=== PATIENT | female | born 1975 | race Caucasian/White ===

== ENCOUNTER 2016-03-19 10:43 | Outpatient (CLI) | payer OTHER ==
[~2016-03-19] VITALS: Ht 170.2 cm; Wt 107.7 kg
[2016-03-19] MEDS ORDERED: LISI1TAB6 PO (11:02)
[2016-03-19] MEDS ORDERED: SERT100T PO (11:02)
[2016-03-19] MEDS ORDERED: CALC600T12 PO (11:02)
[2016-03-19] MEDS ORDERED: OMEG-160 PO (11:02)
[2016-03-19] MEDS ORDERED: METO100T6 PO (11:02)
[2016-03-19] MEDS ORDERED: GLIM1TAB PO (11:02)
[2016-03-19] MEDS ORDERED: EXEN2VIA SQ (11:02)
[2016-03-19] MEDS ORDERED: METF1000 PO (11:02)
[2016-03-19] MEDS ORDERED: FERR-74 PO (11:02)
[2016-03-19] MEDS ORDERED: CHOL10003 PO (11:02)
[2016-03-19] MEDS ORDERED: CETI10TA20 PO (11:02)
[2016-03-19] MEDS ORDERED: SIMV20TA3 PO (11:02)
[2016-03-19 11:05] VITALS: BP 137/85
[2016-03-19 11:42] LABS: BASOPHILS % (AUTO) 1 % (0-10); EOSINOPHILS # (AUTO) 0.2 10^3/uL (0.0-0.3); EOSINOPHILS % (AUTO) 4 % (0-10); LYMPHOCYTES # (AUTO) 1.4 X 10^3 (1.0-4.0); LYMPHOCYTES % (AUTO) 23 % (12-44); MEAN CORPUSCULAR HEMOGLOBIN 28 PG (25-34); MEAN CORPUSCULAR HGB CONC 33 G/DL (32-36); MEAN CORPUSCULAR VOLUME 85 FL (80-99); MEAN PLATELET VOLUME 10.2 FL (7.4-10.4); MONOCYTES # (AUTO) 0.5 X 10^3 (0.0-1.0); MONOCYTES % (AUTO) 9 % (0-12); NEUTROPHILS # (AUTO) 3.8 X 10^3 (1.8-7.8); NEUTROPHILS % (AUTO) 64 % (42-75); PLATELET COUNT 258 10^3/uL (130-400); RED BLOOD COUNT 4.48 10^6/uL (4.35-5.85); RED CELL DISTRIBUTION WIDTH 13.8 % (10.0-14.5); WHITE BLOOD COUNT 5.9 10^3/uL (4.3-11.0)
[2016-03-24] MEDS ORDERED: OXYC-465 PO (08:33)
[2016-03-24] MEDS ORDERED: DOCU100C37 PO (08:33)
[2016-03-24] MEDS ORDERED: IBUP-1780 PO (08:33)
== END 2016-03-19 11:40 | disposition home or self-care (01) ==
LOC: PREOP 10:43
PROVIDERS: ATTEND Obstetrics & Gynecology
DX: Z01.812 Encounter for preprocedural laboratory examination (principal); Z11.2 Encounter for screening for other bacterial diseases; N93.8 Other specified abnormal uterine and vaginal bleeding; N92.1 Excessive and frequent menstruation with irregular cycle; R19.09 Other intra-abdominal and pelvic swelling, mass and lump; N39.3 Stress incontinence (female) (male); D64.9 Anemia, unspecified
CPT/HCPCS: 36415; 85025; 86850; 86900; 86901; 87081

== ENCOUNTER 2016-03-23 10:55 | Day surgery (SDC) | payer OTHER ==
[~2016-03-23] VITALS: Ht 170.2 cm; Wt 107.7 kg
[~2016-03-23 10:55] MED LIST: CALC600T12 PO; CETI10TA20 PO; CHOL10003 PO; EXEN2VIA SQ; FERR-74 PO; GLIM1TAB PO; LISI1TAB6 PO; METF1000 PO; METO100T6 PO; OMEG-160 PO; SERT100T PO; SIMV20TA3 PO
[2016-03-23] MEDS ORDERED: ceFAZolin 1,000 MG (ANCEF) VIAL ONE (11:06)
[2016-03-23] MEDS ORDERED: NORMAL SALINE (BAXTER MINI) 50 ML IV ONE (11:07)
[2016-03-23] MEDS ORDERED: CATHETER FLUSH 10 ML SYR IV PRN (11:15)
[2016-03-23] MEDS ORDERED: ceFAZolin 1 GM/NS 50 ML IVPB IV ONE ×2 (11:15)
[2016-03-23 11:25] VITALS: BP 136/87
[2016-03-23] MEDS ORDERED: PHENYLEPHRINE 0.25% NASAL SPR (NEO-SYNEPHRINE) 15 ML NS ONE (11:45)
[2016-03-23] MEDS ORDERED: FAMOTIDINE 20MG/2ML IV (PEPCID) IV ONE (11:45)
[2016-03-23] MEDS: LACTATED RINGERS 1,000 ML IV PRN ×2 (11:48→13:36)
[2016-03-23] MEDS ORDERED: BUP/EPI 0.25% 1:200,000 (MARCAINE) 30 ML VIAL ONE (11:53)
[2016-03-23] MEDS ORDERED: ONDANSETRON 4 MG/2 ML (SDV) Z0FRAN ONE (12:01)
[2016-03-23] MEDS ORDERED: LACTATED RINGERS 1,000 ML IV ONE ×2 (12:01→13:17)
[2016-03-23] MEDS ORDERED: proPOfol 200 MG/20 ML (DIPRIVAN) VIAL IV ONE (12:01)
[2016-03-23] MEDS ORDERED: LIDOCAINE PF 2% 10 ML (XYLOCAINE) AMP ONE (12:01)
[2016-03-23] MEDS ORDERED: SEVOFLURANE (ULTANE) 15 ML INHAL SOLN ONE ×3 (12:01→15:01)
[2016-03-23] MEDS ORDERED: ROCURONIUM 50 MG/5 ML (ZEMURON) VIAL IV ONE ×2 (12:02→12:49)
[2016-03-23] MEDS ORDERED: fentaNYL INJECTION 250 MCG/5 ML AMP ONE (12:02)
[2016-03-23] MEDS ORDERED: MIDAZOLAM 2 MG/2 ML (VERSED) VIAL ONE (12:02)
--- NOTE | 2016-03-23 12:32 | Progress Note-Pre Operative ---
Pre-Operative Progress Note H&P Reviewed The H&P was reviewed, patient examined and no changes noted. Date H&P Reviewed: Mar 23, 2016 Time H&P Reviewed: 12:31 Pre-Operative Diagnosis: DUB/menorrhagia/intrauterine mass VILMA RINCON MD Mar 23, 2016 12:32 pm
[2016-03-23] MEDS ORDERED: ESTROGENS CONJ IV 25 MG/5 ML (PREMARIN) VIAL IVP ONE (12:45)
[2016-03-23] MEDS ORDERED: MEPERIDINE (DEMEROL) INJ 100 MG/ML IM PRN (12:45)
[2016-03-23] MEDS ORDERED: ONDANSETRON 4 MG/2 ML (SDV) Z0FRAN IVP PRN ×2 (12:45→14:45)
[2016-03-23] MEDS ORDERED: PATIENT MAY USE OWN MEDS, ALL MC SCH (12:45)
[2016-03-23] MEDS ORDERED: oxyCODONE/APAP 10/325MG (PERCOCET 10) TABLET PO PRN (12:45)
[2016-03-23] MEDS ORDERED: PROMETHAZINE INJ 25 MG/ML (PHENERGAN) AMP IM PRN (12:45)
[2016-03-23] MEDS ORDERED: GLYCOPYRROLATE 0.2 MG/ML (ROBINUL) 2 ML VIAL ONE (13:17)
[2016-03-23] MEDS ORDERED: NEOSTIGMINE (BLOXIVERZ ) 1 MG/1ML 10 ML VIAL ONE (13:17)
[2016-03-23] MEDS ORDERED: MEPERIDINE (DEMEROL) INJ 50 MG/ML IVP PRN (14:45)
[2016-03-23] MEDS ORDERED: HYDROmorphone (DILAUDID) 2 MG/ML VIAL IVP PRN (14:45)
[2016-03-23] MEDS ORDERED: morphine INJ 10 MG/ML 1ML (SYR OR VIAL) IVP PRN (14:45)
[2016-03-23] MEDS ORDERED: ESTROGENS CONJ IV 25 MG/5 ML (PREMARIN) VIAL ONE (15:07)
[2016-03-23] MEDS ORDERED: WATER (STERILE) FOR INJECTION 10 ML ONE (15:07)
[2016-03-23] MEDS ORDERED: PROMETHAZINE INJ 25 MG/ML (PHENERGAN) AMP IV PRN (15:15)
[2016-03-23] MEDS ORDERED: ONDANSETRON 4 MG/2 ML (SDV) Z0FRAN IV PRN (15:15)
[2016-03-23] MEDS: KETOROLAC 30 MG/ML VIAL IVP SCH ×2 (15:20→22:43)
[2016-03-23] MEDS: morphine INJ 10 MG/ML 1ML (SYR OR VIAL) IV PRN ×2 (15:23→15:32)
[2016-03-23 16:00] VITALS: BP 125/68
[2016-03-23] MEDS: D5 LR IV SOLUTION 1,000 ML IV SCH (16:50)
[2016-03-23 17:00] VITALS: BP 133/71
[2016-03-23 22:54] VITALS: BP 110/70
[2016-03-24] MEDS: D5 LR IV SOLUTION 1,000 ML IV SCH (00:03)
[2016-03-24 04:15] VITALS: BP 110/77
[2016-03-24] MEDS: KETOROLAC 30 MG/ML VIAL IVP SCH (04:15)
--- NOTE | 2016-03-24 08:32 | Progress Note-Standard ---
Standard Progress Note Progress Notes/Assess & Plan Progress/Assessment & Plan patient is without complaint. She has ambulating, tolerating by mouth well, has good pain control, denies chest pain, denies shortness of breath, denies nausea vomiting, she has not voided as of yet. Vital Signs Date Time Temp Pulse Resp B/P Pulse Ox O2 Delivery O2 Flow Rate FiO2 03/24/16 04:15 97.8 78 16 110/77 95 Nasal Cannula 2.00 03/23/16 22:54 97.8 78 16 110/70 95 Nasal Cannula 2.00 03/23/16 20:30 98.1 74 18 96 2.00 03/23/16 17:00 99.0 77 18 133/71 96 03/23/16 16:18 2.50 03/23/16 16:00 99.1 71 18 125/68 96 Room Air 03/23/16 11:25 99.7 80 18 136/87 96 Room Air I & O 03/24/16 07:00 Intake Total 2860 ml Output Total 3760 ml Balance -900 ml vital signs are stable. Patient is afebrile. Urine output is normal. Abdomen is benign. Extremities show no clubbing or cyanosis. No Homans sign. Assessment and plan is operative day number 1 doing well. Plan is for discharge home with follow-up in clinic. VILMA RINCON MD Mar 24, 2016 8:32 am
[2016-03-24] MEDS ORDERED: DOCU100C37 PO (08:33)
[2016-03-24] MEDS ORDERED: IBUP-1780 PO (08:33)
[2016-03-24] MEDS ORDERED: OXYC-465 PO (08:33)
--- NOTE | 2016-03-24 08:35 | Discharge Instructions ---
Discharge Instructions Discharge Medications New, Converted or Re-Newed RX: RX on Chart Patient Instructions Patient Instructions: as directed Return to The Hospital For: as directed Activity & Diet Discharge Diet: No Restrictions Activity as Tolerated: No Orders-Post D/C & Referrals Follow Up Appt: return to clinic next Saturday, March 28, 2016 at 930 a.m. for staple removal Call to make follow up appt. for patient in 4 weeks. Activity: Rest for 24 hours, than as tolerated. Wound Care: May remove Band-Aid tomorrow. Replace as desired. Keep incisions clean and dry. Wash daily with soap and water. Please call in RX to patient pharmacy. Diet: As tolerated-Clear Liquids only if nauseated. Tomorrow, may shower or tub bathe as desired. No driving for 24 hours, no alcoholic beverages for 24 hours, and nothing per vagina (no tampons, douching, or intercourse) for 8 weeks. Patient to return to the clinic as soon as possible for: Temperature greater than 101F, Severe Pain, Foul discharge from incision or vagina, Excessive Bleeding (more than a period). VILMA RINCON MD Mar 24, 2016 8:35 am
[2016-03-24 08:45] VITALS: BP 125/65
[2016-03-24] MEDS ORDERED: DOCUSATE SODIUM 100 MG (COLACE) CAP PO SCH (09:00)
[2016-03-24] MEDS ORDERED: IBUPROFEN 800 MG (MOTRIN) TAB PO ONE (09:40)
[2016-03-24 12:25] VITALS: BP 108/70
[2016-03-24] MEDS ORDERED: IBUPROFEN 800 MG (MOTRIN) TAB PO SCH ×2 (12:30→18:00)
--- NOTE | 2016-03-24 22:37 | OPERATIVE REPORT ---
PROCEDURE PHYSICIAN: VILMA RINCON DATE OF PROCEDURE: 03/23/2016 PREOPERATIVE DIAGNOSIS: PREOPERATIVE DIAGNOSES: 1. Dysfunctional uterine bleeding. 2. Menorrhagia. 3. Intrauterine mass. POSTOPERATIVE DIAGNOSES: 1. Dysfunctional uterine bleeding. 2. Menorrhagia. 3. Intrauterine mass. OPERATIVE PROCEDURE: 1. Total laparoscopic hysterectomy. 2. Bilateral salpingectomies. 3. Right ovarian cyst aspiration. 4. Adhesiolysis. 5. Cystoscopy. OPERATIVE DESCRIPTION: With the patient in the supine position, under satisfactory general anesthesia, she was prepped and draped in usual fashion for abdominal and vaginal surgery using the da John robot for assistance. A weighted speculum was placed in the posterior fornix of the vagina. The cervix exposed and grasped anteriorly with single-tooth tenaculum. The uterus sounded to 9 cm of uterine sound. The cervix was then serially dilated with Felix dilators to accommodate a ADILIA 2 manipulator, which is placed using a 6 mm x 8 cm uterine probe and a 30 mm colpotomy ring. Sutures of number 1 Vicryl were placed at 3 and 9 o'clock position of the cervix to affix the cervix to the manipulator. Bean cath was placed in the urinary bladder and the patient brought in low dorsal lithotomy position. A 12 mm incision was made 4 cm superior to the umbilicus. 8 mm incisions were made 9 cm lateral to the umbilicus just above the level of the umbilicus. All 3 incision sites were infiltrated with 0.25% Marcaine with epinephrine prior to incision and port placement. Veress needle was placed through the umbilical incision. Correct placement confirmed with the water drop test. The abdomen was insufflated with 2.4 liters of carbon dioxide and the Veress needle was removed and 12 mm operative port placed. Laparoscope was introduced and an 8 mm ports was placed in right and left lateral incisions. The patient was placed in Trendelenburg allowing the bowel to spill up out of the pelvis. The da John column was advanced onto the patient and docked. Operative instruments were placed in right and left lateral ports. I retired to the da John console. At the console, using a monopolar shear on the right and bipolar fenestrated grasper on the left, the pelvis was first examined. There were adhesions to bowel and omentum to the back side of uterus and to both pelvic brims and particularly the left tube and ovary. These adhesions were taken down with very careful and meticulous dissection. There were adhesions in the cul-de-sac. These were taken free as well avoiding thermal or traumatic injury to bowel or to adjacent structures. The uterus, tubes and ovaries were eventually freed. With those free, attention was then turned to the hysterectomy. The appendix was not visible under the rather copious folds of bowel. An attempt was made to visualize the appendix, that was unsuccessful and was terminated. The vessel sealer was now placed in the right port and then the right fallopian tube was grasped and elevated. It was a fairly significant hydrosalpinx. The mesosalpinx was clamped, cauterized, and divided with the vessel sealer over to the utero-ovarian pedicle, which was clamped, cauterized, and divided in the same manner and then down across the broad ligaments, and down onto the cardinal ligament with the same instrument. The same procedure was performed on the left allowing for removal of both fallopian tubes eventually with the uterus. The anterior lower uterine segment peritoneum was now divided after changing the right instrument out to the monopolar shear. The bladder was carefully dissected down off of the cervix. The colpotomy incision was made at the 12 o'clock position and continued circumferentially until the entire colpotomy ring was exposed. This allowed removal of the uterus with the tubes still attached through the vagina. Several times along the way because of some oozing, a suction scraper loader operator was employed to irrigate and aspirate the blood that was collected in the pelvis. With the uterus removed, the left instrument was replaced with a Cobra grasper, the right with a alejandrina cut needle driver lifter of sanitation truck and then using 2 sutures of V-LOC barbed suture, the vaginal cuff was closed starting first from the right angle and continuing to the midportion of the cuff and then from the left angle to the midportion. Good reapproximation was achieved. Good hemostasis was achieved. The pelvis was now copiously irrigated and examined for hemostasis. The procedure was now addressed to the right ovary which had a large simple appearing cysts that cyst was fenestrated and then the straw to salazar colored fluid was aspirated out. The cyst cavity was irrigated. There was no bleeding from the cyst cavity. The ovary was left to heal on its own. The procedure was now complete. The operative instruments were removed under direct vision as were the ports. The abdomen was evacuated of insufflating gas in the process of removing the port. The skin incisions were closed with anastasiia after first closing the supraumbilical fascial incision with [id number] suture of 2-0 Vicryl. Cystoscopy was performed using saline as a distending medium. The ureteral orifices were identified. They were seen to efflux easily. The bladder wall was intact. There was no abnormal pathology and the bladder. The procedure at this point was complete and terminated as sponge and needle corrects were correct for the procedure. The estimated blood loss was around 100 mL. The patient tolerated the procedure well, and was uneventfully awakened from her general anesthesia and transferred to recovery room in stable condition. Job ID: [id number] Dictated Date: 03/23/2016 14:47:19 Reinsurance Claims Analyst Date: 03/24/2016 22:21:02 / hunter
== END 2016-03-24 12:50 | disposition home or self-care (01) ==
LOC: SDC 10:55 → WS 16:00 → SDC 03-24 12:50
PROVIDERS: ATTEND Obstetrics & Gynecology
DX: N93.8 Other specified abnormal uterine and vaginal bleeding (principal); N92.0 Excessive and frequent menstruation with regular cycle; N83.201 Unspecified ovarian cyst, right side; N80.0 Endometriosis of uterus; N84.0 Polyp of corpus uteri; N70.11 Chronic salpingitis; N83.8 Other noninflammatory disorders of ovary, fallopian tube and broad ligament
CPT/HCPCS: 82962; 84703; 94664; 96361; 96372; 96375; 96376

== ENCOUNTER 2020-07-14 05:36 | Outpatient (CLI) | payer OTHER ==
[~2020-07-14] VITALS: Ht 170.2 cm; Wt 107.6 kg
[~2020-07-14 05:36] MED LIST changes: -CALC600T12 PO; +CALC600T91 PO; -CETI10TA20 PO; +CETI10TA49 PO; +DOCU100C37 PO; -FERR-74 PO; +FERR325T18 PO; -GLIM1TAB PO; +GLIM1TAB4 PO; +IBUP-1780 PO; +LISI1TAB29 PO; -LISI1TAB6 PO; +METF-399 PO; -METF1000 PO; +OXYC-556 PO; +SIMV20TA26 PO; -SIMV20TA3 PO
[2020-07-19] MEDS ORDERED: ALPR0.5T PO (08:47)
[2020-07-19] MEDS ORDERED: SERT100T PO (08:47)
[2020-07-19] MEDS ORDERED: ASCO500C17 PO (08:47)
== END 2020-07-19 08:52 | disposition home or self-care (01) ==
LOC: PREOP 05:36
PROVIDERS: ATTEND Surgery
DX: Z01.818 Encounter for other preprocedural examination (principal); K64.9 Unspecified hemorrhoids

== ENCOUNTER 2020-07-28 06:37 | Day surgery (SDC) | payer OTHER ==
[2020-07-28] VITALS (10 sets, daily range): BP systolic 99–131; BP diastolic 56–78
[~2020-07-28] VITALS: Ht 170.2 cm; Wt 107.6 kg
[~2020-07-28 06:37] MED LIST changes: +ALPR0.5T PO; +ASCO500C17 PO
[2020-07-28] MEDS ORDERED: metroNIDAZOLE 500MG/100ML IVPB 100 ML IV ONE (06:45)
[2020-07-28] MEDS ORDERED: ceFAZolin 2 GM IV Premixed 50 ML IV ONE (06:45)
[2020-07-28] MEDS ORDERED: LACTATED RINGERS 1,000 ML IV PRN (06:45)
[2020-07-28] MEDS ORDERED: LIDOCAINE PF 2% 5 ML (XYLOCAINE) VIAL ONE (06:54)
[2020-07-28] MEDS ORDERED: proPOfol 200 MG/20 ML (DIPRIVAN) VIAL IV ONE (06:54)
[2020-07-28] MEDS ORDERED: ROCURONIUM 10 MG/ML 5 ML SYRINGE IV ONE (06:54)
[2020-07-28] MEDS ORDERED: MIDAZOLAM 2 MG/2 ML (VERSED) VIAL ONE (06:55)
[2020-07-28] MEDS ORDERED: fentaNYL INJ 100 MCG/2 ML AMP ONE (06:55)
[2020-07-28] MEDS ORDERED: LIDOCAINE/EPI 1%-1:100,000 (XYLOCAINE) 20ML ONE (07:16)
[2020-07-28] MEDS ORDERED: FEXO-14 PO (07:19)
[2020-07-28] MEDS ORDERED: FLUT9.9S NS (07:19)
[2020-07-28] MEDS ORDERED: ACHD5005 PO (09:11)
[2020-07-28] MEDS ORDERED: DOCU-143 PO (09:11)
[2020-07-28] MEDS ORDERED: ONDANSETRON 4 MG/2 ML (SDV) Z0FRAN ONE (09:17)
--- NOTE | 2020-07-28 09:17 | Discharge Inst-Simple/Standard ---
Discharge Inst-Standard Discharge Medications New, Converted or Re-Newed RX: Transmitted to Pharmacy Patient Instructions/Follow Up Plan of Care/Instructions/FU: 2 weeks Aster Activity as Tolerated: No Discharge Diet: Regular Diet Other Inst to Patient Follow up Appt: Make appointment for 2 week. Instructions: No lifting greater than 10 pounds. No strenuous activity. May shower in 24 hours, no tub bath or soaking. Use incentive spirometer at home as directed. No Smoking Skin/Wound Care: You have a plug in the anus, it will fall out with bowel movement, if not out in 24 hours, remove it. Sitz bath 2-3 times a day and after bowel movements until seen in the office. Symptoms to Report: Appetite Changes, Extremity Discoloration, Numbness/Tingling, Swelling Increased, Bleeding Excessive, Eyesight Changes, Pain Increased, Urine Color Change, Constipation(Persistent), Fever over 101 degree F, Pain/Pressure in chest, Urinating Difficulty, Cough Up/Vomit Blood, Heart Beat Irreg/Pounding, Pain/Pressure in jaw, Vaginal Bleeding Increase, Cramps in feet or legs, Lightheadedness, Pain/Pressure in shoulder, Diarrhea(Persistent), Memory Changes Suddenly, Questions/Concerns, Weight gain consecutive days, Dizziness/Fainting, Nausea/Vomiting, Shortness of Breath, Weight gain over 2 pounds If questions or concerns contact your physician Or seek help at emergency department. ADOLFO OMALLEY DO July 28, 2020 09:17
--- NOTE | 2020-07-28 10:44 | Anesthesia-General Post-Op ---
General Patient Condition Mental Status/LOC: Same as Preop Cardiovascular: Satisfactory Nausea/Vomiting: Absent Respiratory: Satisfactory Pain: Controlled Complications: Absent Post Op Complications Complications None Follow Up Care/Instructions Patient Instructions None needed. Anesthesia/Patient Condition Patient Condition Patient is doing well, no complaints, stable vital signs, no apparent adverse anesthesia problems. SENDY BERRY DO July 28, 2020 10:44
--- NOTE | 2020-07-28 17:05 | OPERATIVE REPORT ---
DATE OF SERVICE: 07/28/2020 PREOPERATIVE DIAGNOSIS: External and internal hemorrhoids. POSTOPERATIVE DIAGNOSIS: External and internal hemorrhoids. PROCEDURE PERFORMED: External and internal hemorrhoidectomy x3. SURGEON: Adolfo Rodarte DO. ANESTHESIA: General. ESTIMATED BLOOD LOSS: Minimal. COMPLICATIONS: None. INDICATIONS FOR PROCEDURE: The patient is a 44-year-old female with internal and external hemorrhoids, which causes her discomfort. She understands risks and benefits of procedure and wishes to proceed. Consent was signed in the chart. DESCRIPTION OF PROCEDURE: The patient was taken to the operating suite and placed in a lithotomy position. Timeout was performed. The local anesthetic was used to perform a pudendal nerve block. A Desmarres retractor was inserted into the rectum. The left lateral hemorrhoid was able to be grasped and elevated. The external component and internal component was then excised using a Harmonic. The Desmarres retractor was then removed and replaced back in noting a left posterior hemorrhoid complex, which the external and internal complex was removed using the Harmonic again. The right anterior hemorrhoid complex was removed in the same fashion as well. Hemostasis was achieved. A Gelfoam plug with Vaseline gauze was then inserted into the anus to assist with further hemostasis. The area was then washed and dried. The patient tolerated the procedure well without any complications. She was taken to recovery room in stable condition. Job ID: [id number] DocumentID: [id number] Dictated Date: 07/28/2020 14:44:45 Lime Kiln And Recausticizing Operator Date: 07/28/2020 17:04:37 Dictated By: ADOLFO RODARTE DO
== END 2020-07-28 11:00 | disposition home or self-care (01) ==
LOC: SDC 06:37
PROVIDERS: ATTEND Surgery
DX: K64.4 Residual hemorrhoidal skin tags (principal); K64.8 Other hemorrhoids; I10 Essential (primary) hypertension; F41.9 Anxiety disorder, unspecified; F32.9 Major depressive disorder, single episode, unspecified; E11.9 Type 2 diabetes mellitus without complications; Z79.84 Long term (current) use of oral hypoglycemic drugs; Z79.899 Other long term (current) drug therapy
CPT/HCPCS: 82947; 87081

== ENCOUNTER 2021-02-07 05:38 | Outpatient (CLI) | payer OTHER ==
[~2021-02-07] VITALS: Ht 170.2 cm; Wt 102.0 kg
[~2021-02-07 05:38] MED LIST changes: +ACHD5005 PO; +DOCU-143 PO; +FEXO-14 PO; +FLUT9.9S NS; -LISI1TAB29 PO; +LISI1TAB44 PO
== END 2021-02-07 15:09 | disposition home or self-care (01) ==
LOC: PREOP 05:38
PROVIDERS: ATTEND Surgery
DX: Z01.818 Encounter for other preprocedural examination (principal)

== ENCOUNTER 2021-02-14 10:42 | Day surgery (SDC) | payer OTHER ==
[~2021-02-14] VITALS: Ht 170.2 cm; Wt 102.3 kg
[2021-02-14] VITALS (7 sets, daily range): BP systolic 119–131; BP diastolic 63–83
[2021-02-14] MEDS ORDERED: LACTATED RINGERS 1,000 ML IV STA (10:44)
[2021-02-14] MEDS ORDERED: LACTATED RINGERS 1,000 ML IV ONE (10:46)
--- NOTE | 2021-02-14 11:31 | Progress Note-Pre Operative ---
Pre-Operative Progress Note H&P Reviewed The H&P was reviewed, patient examined and no changes noted. Date Seen by Provider: Feb 14, 2021 Time Seen by Provider: 11:31 Date H&P Reviewed: Feb 14, 2021 Time H&P Reviewed: 11:31 Pre-Operative Diagnosis: family hx colon cancer ADOLFO OMALLEY DO Feb 14, 2021 11:31
[2021-02-14] MEDS ORDERED: MIDAZOLAM 2 MG/2 ML (VERSED) VIAL ONE (11:49)
[2021-02-14] MEDS ORDERED: PROPOFOL INJECTION 50 ML IV ONE ×2 (11:50→12:11)
--- NOTE | 2021-02-14 12:28 | Progress Note-Post Operative ---
Post-Operative Progess Note Surgeon (s)/Stock Replenisher (s) Surgeon ADOLFO OMALLEY DO Stock Replenisher: na Pre-Operative Diagnosis family hx colon cancer Post-Operative Diagnosis rectal polyp Procedure & Operative Findings Date of Procedure 02/14/21 Procedure Performed/Findings colonoscopy c cold biopsy polypectomy Anesthesia Type per sound effects technician Estimated Blood Loss Estimated blood loss (mL): none Specimens/Packing Specimens Removed rectal polyp ADOLFO OMALLEY DO Feb 14, 2021 12:28
--- NOTE | 2021-02-14 12:30 | Discharge Inst-Simple/Standard ---
Discharge Inst-Standard Patient Instructions/Follow Up Plan of Care/Instructions/FU: 2 weeks Aster Activity as Tolerated: Yes Discharge Diet: Regular Diet ADOLFO OMALLEY DO Feb 14, 2021 12:30
--- NOTE | 2021-02-14 12:32 | Anesthesia-General Post-Op ---
MAC Patient Condition Mental Status/LOC: Same as Preop Cardiovascular: Satisfactory Nausea/Vomiting: Absent Respiratory: Satisfactory Pain: Controlled Complications: Absent Post Op Complications Complications None Follow Up Care/Instructions Patient Instructions None needed. Anesthesiology Discharge Order Discharge Order Patient is doing well, no complaints, stable vital signs, no apparent adverse anesthesia problems. No complications reported per nursing. TYLOR WALLIS CRNA Feb 14, 2021 12:32
--- NOTE | 2021-02-14 20:14 | OPERATIVE REPORT ---
DATE OF SERVICE: 02/14/2021 PREOPERATIVE DIAGNOSIS: Family history of colon cancer. POSTOPERATIVE DIAGNOSIS: Rectal polyp. PROCEDURE: Colonoscopy with cold biopsy polypectomy. SURGEON: Adolfo Rodarte DO ANESTHESIA: Per INDUSTRIAL TRAINING SPECIALIST. ESTIMATED BLOOD LOSS: None. COMPLICATIONS: None. INDICATIONS: The patient is a 45-year-old female needing colonoscopy. She understands risks and benefits of procedure and wishes to proceed. Consent was signed in the chart. DESCRIPTION OF PROCEDURE: The patient was taken to the endoscopy suite, placed in left lateral recumbent position. Timeout was performed. A digital rectal exam was performed. No palpable polyps, masses or ulcerations. Scope was inserted in the rectus all the way to cecum with minimal difficulty. Prep was adequate. Scope was slowly retracted back. No polyps, masses or ulcerations in the cecum, ascending, transverse, descending and sigmoid colon. In the rectum, a small polyp was present, which cold biopsy polypectomy was performed. Scope was retroflexed noting no other pathology. Scope was returned to its normal position, slowly withdrawn until completely removed. The patient tolerated procedure well without any complications. She was taken to recovery room in stable condition. RECOMMENDATIONS: The patient will need repeat colonoscopy in 5 years. Any issues before that be seen at that time. The patient will need to follow up on pathology in 2 weeks. CC: Lashon Bolton -- requested, unable to deliver. Job ID: [id number] DocumentID: [id number] Dictated Date: 02/14/2021 12:32:35 Software Engineering Analyst Date: 02/14/2021 20:13:40 Dictated By: ADOLFO RODARTE DO
== END 2021-02-14 13:05 | disposition home or self-care (01) ==
LOC: ENDO 10:42
PROVIDERS: ATTEND Surgery
DX: Z12.11 Encounter for screening for malignant neoplasm of colon (principal); K62.1 Rectal polyp; I10 Essential (primary) hypertension; E11.9 Type 2 diabetes mellitus without complications; Z80.0 Family history of malignant neoplasm of digestive organs; Z79.84 Long term (current) use of oral hypoglycemic drugs; Z79.899 Other long term (current) drug therapy
CPT/HCPCS: 88305